=== PATIENT | female | born 1965 | race Caucasian/White ===

== ENCOUNTER 2020-12-11 13:54 | Emergency (ER) | payer MEDICARE, OTHER, SELFPAY ==
[2020-12-11 14:12] VITALS: BP 170/106; PULSE 97; RESP 20; TEMP 36.7; O2SAT 97
--- NOTE | 2020-12-11 14:23 | ED.FEMALEGU ---
HPI - Female Genitourinary General Chief complaint: Urogenital-Female <Sharee Carreon NP - Last Filed: 12/13/20 13:04> Stated complaint: Poss UTI <Sharee Carreon NP - Last Filed: 12/13/20 13:04> Time Seen by Provider: 12/11/20 14:24 <Sharee Carreon NP - Last Filed: 12/13/20 13:04> Source: patient, RN notes reviewed and old records reviewed <Sharee Carreon NP - Last Filed: 12/13/20 13:04> Mode of arrival: ambulatory <Sharee Carreon NP - Last Filed: 12/13/20 13:04> Limitations: no limitations <Sharee Carreon NP - Last Filed: 12/13/20 13:04> History of Present Illness HPI Narrative: 55-year-old female who presents to [facility] with complaints of urinary burning with pain in her left flank, lower back and suprapubic area of abdomen for the past 3 days. Patient reports that she has been taking Uricalm OTC for her symptoms and drinking lots of water. Patient states that she has had past history of Uro-sepsis in 2019 from UTI.Patient denies any known fevers, chills or sweats, no nausea or vomiting or any diarrhea.Patient reports no concern for STD exposure, denies any vaginal discharge or itching. <Sharee Carreon NP - Last Filed: 12/13/20 13:04> Related Data Home medications: Home Medications Medication Instructions Recorded Confirmed atorvastatin 80 mg PO DAILY 12/11/20 12/11/20 clopidogrel 75 mg PO DAILY 12/11/20 12/11/20 furosemide 20 mg PO QAM 12/11/20 12/11/20 glipizide 10 mg PO DAILY 12/11/20 12/11/20 isosorbide mononitrate 30 mg PO DAILY 12/11/20 12/11/20 lisinopril 20 mg PO DAILY 12/11/20 12/11/20 nitroglycerin 0.4 mg TRANSDERMAL DAILY 12/11/20 12/11/20 omeprazole 40 mg PO DAILY 12/11/20 12/11/20 <Sharee Carreon NP - Last Filed: 12/13/20 13:04> Allergies/Adverse reactions: Allergies Allergy/AdvReac Type Severity Reaction Status Date / Time tramadol Allergy Vomiting Verified 12/11/20 14:13 <Sharee Carreon NP - Last Filed: 12/13/20 13:04> Review of Systems Review of Systems: CONSTITUTIONAL: Denies fever, chills, or sweats. EYES: Denies visual changes, redness, or discharge. ENT: Denies rhinorrhea, congestion, sore throat, or otalgia. CARDIOVASCULAR: Denies chest pain, palpitations, or edema. RESPIRATORY: Denies cough or dyspnea. GASTROINTESTINAL: Suprapubic pain in abdominal, no nausea, vomiting, or diarrhea. GENITOURINARY:Positive for dysuria or hematuria. SKIN: Denies rash or itching. MUSCULOSKELETAL:Positive for left flank area back pain, joint pain, or myalgia. NEUROLOGIC: Denies headache, numbness, or weakness. PSYCHIATRIC: Positive history of anxiety or depression. <Sharee Carreon NP - Last Filed: 12/13/20 13:04> All systems reviewed & are unremarkable except as noted in HPI and below <Sharee Carreon NP - Last Filed: 12/13/20 13:04> [facility] Past Medical History Medical History: Medical History (Updated 12/13/20 @ 12:59 by Sharee Carreon NP) Anxiety Diabetes Heart attack MRSA cellulitis UTI (urinary tract infection) <Sharee Carreon NP - Last Filed: 12/13/20 13:04> Surgical History Surgical History: Surgical History (Updated 12/11/20 @ 15:02 by Sharee Carreon NP) H/O heart artery stent X4 History of appendectomy History of right salpingo-oophorectomy <Sharee Carreon NP - Last Filed: 12/13/20 13:04> Family History Family History: Family History (Updated 12/11/20 @ 14:59 by Sharee Carreon NP) Grandparent Cerebrovascular accident Mother Diabetes mellitus Heart disease <Sharee Carreon NP - Last Filed: 12/13/20 13:04> Social History Social History: Social History (Updated 12/11/20 @ 14:58 by Sharee Carreon NP) Smoking packs per day: 0.5 Smoking cigarettes per day: 10.0 Years smoked: 40 Smoking pack-years: 20.00 Smoking status: Current every day smoker Tobacco type: cigarettes Alcohol intake: former Alcohol use details:
[2020-12-11 14:40] LABS: Glucose Point of Care 347 mg/dl (65-105)
[2020-12-11 14:45] VITALS: BP 156/96
== END 2020-12-11 14:53 | disposition home or self-care (01) ==
PROVIDERS: Emergency Provider Registered Nurse
DX: N39.0 Urinary tract infection, site not specified (principal); F17.210 Nicotine dependence, cigarettes, uncomplicated; E11.9 Type 2 diabetes mellitus without complications; I25.2 Old myocardial infarction; Z86.14 Personal history of Methicillin resistant Staphylococcus aureus infection
CPT/HCPCS: 81003; 82948; 87077; 87086; 87088; 87186; 99203; G0463

== ENCOUNTER 2022-04-25 15:52 | Emergency (ER) | payer OTHER, SELFPAY ==
[2022-04-25 16:01] VITALS: BP 132/82; PULSE 80; RESP 18; TEMP 36.3; O2SAT 97
--- NOTE | 2022-04-25 16:06 | ED.URI ---
HPI - URI/Sore Throat General Chief Complaint: Urogenital-Female Stated Complaint: Poss UTI/hemorroids Time Seen by Provider: 04/25/22 16:06 Source: patient Mode of arrival: ambulatory Limitations: no limitations History of Present Illness HPI Narrative: Michelle is a 57-year-old female patient presenting to the clinic today with complaints of possible urinary tract infection/hemorrhoids. She reports she is having vaginal itching, burning, and mild discharge. She also is concerned about her hemorrhoids as a feel inflamed. She is also concerned that she may have urinary tract infection. Related Data Home Medications Medication Instructions Recorded Confirmed atorvastatin 80 mg tablet 80 mg PO DAILY 12/11/20 04/25/22 clopidogrel 75 mg tablet 75 mg PO DAILY 12/11/20 04/25/22 furosemide 20 mg tablet 20 mg PO QAM 12/11/20 04/25/22 glipizide 10 mg tablet, extended 10 mg PO DAILY 12/11/20 04/25/22 release 24 hr isosorbide mononitrate 30 mg 30 mg PO DAILY 12/11/20 04/25/22 tablet,extended release 24 hr lisinopril 20 mg tablet 20 mg PO DAILY 12/11/20 04/25/22 nitroglycerin 0.4 mg/hr 0.4 mg transdermal DAILY 12/11/20 04/25/22 transdermal 24 hour patch omeprazole 40 mg capsule,delayed 40 mg PO DAILY 12/11/20 04/25/22 release Allergies Allergy/AdvReac Type Severity Reaction Status Date / Time tramadol AdvReac Vomiting Verified 04/25/22 16:09 Review of Systems Review of Systems: Pertinent positives per HPI. Patient denies any fever, chills, rash, headache, visual changes, dizziness, cough, runny nose, sore throat, shortness of breath, chest pain, palpitations, nausea, vomiting, diarrhea, constipation, abdominal pain. [facility] Past Medical History Medical History Anxiety Diabetes Heart attack MRSA cellulitis UTI (urinary tract infection) Surgical History Surgical History H/O heart artery stent X4 History of appendectomy History of right salpingo-oophorectomy Family History Family History Grandparent Cerebrovascular accident Mother Diabetes mellitus Heart disease Social History Social History (Updated 12/11/20 @ 14:58 by Sharee Carreon NP) Smoking packs per day: 0.5 Smoking cigarettes per day: 10.0 Years smoked: 40 Smoking pack-years: 20.00 Smoking status: Current every day smoker Tobacco type: cigarettes Alcohol intake: former Alcohol use details: social Substance use: current Substance use type: marijuana Living arrangements: alone Gender identity (if verbalized by the patient): Female Comments At the time of my signature, I reviewed and agree with the nursing past medical, surgical, social, and family history. There is no relevant family history pertinent to the patient complaint. Exam Narrative: General: Well-developed, well nourished, in no apparent distress Head: Normocephalic, atraumatic. Cardio: Regular rate and rhythm, s1 and s2 normal, no murmur appreciated. Resp: Clear to auscultation bilaterally, no rhonchi, rales, wheezing or rubs. Abdomen: Soft, pliable, bowel sounds present in all quadrants, non-tender to palpation, no CVAT tenderness. : Pelvic exam performed with (Yeesnia HATFIELD) at bedside. Verbal consent obtained from patient. Normal external female genitalia without lesions or masses, beefy red rash to perineum and to the external vagina Urinary meatus: patent without discharge, Vagina: No external lesions, masses, thin white discharge, Rectum: Large external non thrombosed rectal hemorrhoid Course Course Emergency Course: Portions of this record may have been created with voice recognition software. Level of Care: Express Care Visit Vital Signs Vital signs: Vital Signs Temperature 36.3 C L 04/25/22 16:01 Pulse Rate 80 04/25/22 16:01 Respirato
== END 2022-04-25 16:47 | disposition home or self-care (01) ==
PROVIDERS: Emergency Provider Nurse Practitioner Family; PCP Internal Medicine
DX: K64.9 Unspecified hemorrhoids (principal); B37.31 Acute candidiasis of vulva and vagina; R81 Glycosuria; E11.9 Type 2 diabetes mellitus without complications; I25.2 Old myocardial infarction; F17.210 Nicotine dependence, cigarettes, uncomplicated
CPT/HCPCS: 81003; 99213; G0463

== ENCOUNTER 2024-03-14 15:00 | Emergency (ER) | payer OTHER, SELFPAY ==
[2024-03-14 15:09] VITALS: BP 143/84; PULSE 85; RESP 20; TEMP 36.6; O2SAT 98
--- NOTE | 2024-03-14 16:00 | ED_ITS ---
HPI - URI/Sore Throat General Chief Complaint: Upper Respiratory Infection Stated Complaint: upper respiratory Time Seen by Provider: 03/14/24 15:40 Source: patient, RN notes reviewed and old records reviewed Mode of arrival: ambulatory Limitations: no limitations History of Present Illness HPI Narrative: 59 year old female presents to [facility] care with complaints of cough, sinus congestion with some sore throat with headaches since [place]. Patient reports that she has not had any known fevers but has had some chills. Patient states that her throat is scratchy and cough is worse at night, Patient is daily cigarette smoker. Patient reports that she has tried Delsym, Sudafed and Ibuprofen for her symptoms without improvement. Patient reports that she did have one incidence of bloody drainage from nose. Patient reports that cough is productive of white and yellow tinged phlegm. MD elicited complaint: cough, sore throat, rhinorrhea, nasal congestion and other (headache) Pertinent past history: COPD and other (CAD, tobacco use) Onset (ago): day(s) (5) Consistency: constant Severity: moderate Able to tolerate fluids by mouth: Yes Treatments prior to arrival: ibuprofen and other (Delsym and Sudafed) Related Data Home Medications ?Medication ?Instructions ?Recorded ?Confirmed ?Last Taken ?Type atorvastatin 80 mg tablet 80 mg PO DAILY 12/11/20 04/25/22 Unknown History clopidogrel 75 mg tablet 75 mg PO DAILY 12/11/20 04/25/22 Unknown History furosemide 20 mg tablet 20 mg PO QAM 12/11/20 04/25/22 Unknown History glipizide 10 mg tablet, extended 10 mg PO DAILY 12/11/20 04/25/22 Unknown History release 24 hr isosorbide mononitrate 30 mg 30 mg PO DAILY 12/11/20 04/25/22 Unknown History tablet,extended release 24 hr lisinopril 20 mg tablet 20 mg PO DAILY 12/11/20 04/25/22 Unknown History omeprazole 40 mg capsule,delayed 40 mg PO DAILY 12/11/20 04/25/22 Unknown History release carvedilol 6.25 mg tablet mg 03/14/24 Unknown History empagliflozin 25 mg tablet mg 03/14/24 Unknown History (Jardiance) ezetimibe 10 mg tablet mg 03/14/24 Unknown History insulin degludec 100 unit/mL (3 unit subcut 03/14/24 Unknown History mL) subcutaneous pen (Tresiba FlexTouch U-100 insulin) insulin lispro 100 unit/mL subcut 03/14/24 Unknown History subcutaneous pen (Admelog SoloStar U-100 Insulin lispro) tirzepatide 2.5 mg/0.5 mL mg subcut 03/14/24 Unknown History subcutaneous pen injector (Mounjaro) Allergies Allergy/AdvReac Type Severity Reaction Status Date / Time tramadol AdvReac Vomiting Verified 03/14/24 15:11 Review of Systems Review of Systems: CONSTITUTIONAL: Reports malaise, chills, sweats, no known fevers EYES: Denies visual changes, redness, or discharge. ENT: Reports rhinorrhea, congestion, sinus pain, no otalgia and scratchy sore throat. CARDIOVASCULAR: Denies chest pain, palpitations, or edema. RESPIRATORY: Reports productive cough.? Denies dyspnea. GASTROINTESTINAL: Denies abdominal pain, nausea, vomiting, diarrhea SKIN: Denies rash or itching. MUSCULOSKELETAL: Denies myalgia. NEUROLOGIC: Reports headache. All systems reviewed & are unremarkable except as noted in HPI and below PMFSH Past Medical History Medical History Elevated cholesterol GERD (gastroesophageal reflux disease) Hypertension CAD (coronary artery disease) Anxiety MRSA cellulitis UTI (urinary tract infection) Heart attack Diabetes Surgical History Surgical History H/O heart artery stent X7 History of appendectomy History of right salpingo-oophorectomy Family History Family History Grandparent Cerebrovascular accident Mother Diabetes mellitus Heart disease Social History Social History Smoking packs per day: 0.5 Smoking cigarettes per day: 10.0 Years smoked: 40 Smoking pack-years: 20.00 Smoking status: Current every day smoker Tobacco type: cigarettes Alcohol intake: former Alcohol use details: social Substance use: current Substance use type: marijuana Living arrangements: alone Gender identity (if verbalized by the patient): Female Comments At time of signature, agree with nursing past medical, surgical, social and family history. There is no relevant family history pertinent to the presenting complaint Exam Narrative: GENERAL:chronic ill-appearing, well-nourished, and in no acute distress. HEAD: Normocephalic EYES: PERRLA conjunctivae clear ENT: Nares clear, turbinates edematous and erythematous, clear discharge, sinus pressure and headache. Mucous membranes moist. TM pearly veloz with dull light reflex bilaterally; no tragal tenderness. Oropharynx erythematous without lesions. Tonsils not enlarged and without exudate, no drooling, no hoarseness, no trismus, uvula midline.post nasal drainage NECK: Supple. No lymphadenopathy CHEST: Scattered wheezing on auscultation, breath sounds equal.+wheezing, no rhonchi, rales, or stridor. No respiratory distress, speaks in full sentences.productive cough SAO2 98% on room air HEART: Regular rate and rhythm. No murmur heard. SKIN: Warm, dry, no rash. NEURO: Alert and oriented x3. PSYCH: Normal mood and affect Course Course Emergency Course: Patient is aware of diagnosis, understands and agrees to treatment plan.? Anticipatory guidance given.? Patient agrees to follow-up as directed and is aware of reasons to seek care at the emergency department. Portions of this record may have been created with voice recognition software Level of Care: Express Care Visit Vital Signs Vital signs: Vital Signs Temperature 36.6 C 03/14/24 15:09 Pulse Rate 85 03/14/24 15:09 Respiratory Rate 20 03/14/24 15:09 Blood Pressure 143/84 H 03/14/24 15:09 Pulse Oximetry 98 03/14/24 15:09 Oxygen Delivery Room Air 03/14/24 15:09 Temperature 36.6 C 03/14/24 15:09 Pulse Rate 85 03/14/24 15:09 Respiratory Rate 20 03/14/24 15:09 Blood Pressure 143/84 H 03/14/24 15:09 Pulse Oximetry 98 03/14/24 15:09 Oxygen Delivery Room Air 03/14/24 15:09 Reviewed MDM - URI/Sore Throat MDM Narrative Medical decision making narrative: Differential diagnosis considered: [place] virus, strep pharyngitis, allergic rhinitis, upper respiratory tract infection, sinusitis, rhinosinusitis, nasopharyngitis. viral pharyngitis, otitis media, otitis externa, pneumonia, bronchitis, viral cough syndrome, viral syndrome, and influenza.? Exam findings show no acute concerns or changes; patient is non-toxic appearing and is in no distress.? Patient is appropriate for outpatient treatment and follow-up. Differential Diagnosis Differential diagnosis: Likely upper respiratory infection, sinusitis, viral infection, bronchitis and other (acute cough) Medical Records Attestation: I reviewed the patient's medical records. Lab Data Attestation: I reviewed the patient's lab results. Critical Care Time Critical Care Time Critical Care Time: No Discharge Plan Discharge Clinical Impression: Acute bronchitis Qualifiers: Bronchitis organism: unspecified organism Qualified Code(s): J20.9 - Acute bronchitis, unspecified Patient Disposition: Home, Self-Care Condition: Stable Instructions: Antibiotic Form Additional Instructions: Increase fluids especially juices and water [id number] cough and cold medicine of your choice for your symptoms Tylenol or ibuprofen for any fever pain Zyrtec Claritin or Sarahi daily Continue your inhaler/nebulizer as directed Steroids as directed--take with food heat to the face 20-30 minutes 4-6 times a day for pain Salt water gargles, throat lozenges or throat sprays as desired Antibiotic as directed--finished the medication If your symptoms persist, change or worsen significantly before you can contact your personal physician then please, without delay, go to the emergency department for further evaluation. Follow-up with PCP in 7-10 days or sooner if needed Follow up with PCP soon in regards to your blood pressure which is elevated above threshold for referral. Blood pressure above 120/80 may indicate pre-hypertension. Patient Language: Filipino Prescriptions: New azithromycin 500 mg tablet 500 mg PO DAILY 5 Days Qty: 5 0RF prednisone 20 mg tablet 40 mg PO DAILY 5 Days Qty: 10 0RF Rx Instructions: take in am albuterol sulfate 90 mcg/actuation HFA aerosol inhaler 2 puff inhalation QID PRN (Reason: shortness of breath or wheezing) Qty: 6.7 0RF No Action carvedilol 6.25 mg tablet insulin lispro [Admelog SoloStar U-100 Insulin] 100 unit/mL insulin pen SUBCUT ezetimibe 10 mg tablet insulin degludec [Tresiba FlexTouch U-100] 100 unit/mL (3 mL) insulin pen SUBCUT Jardiance 25 mg tablet Mounjaro 2.5 mg/0.5 mL pen injector SUBCUT glipizide 10 mg tablet extended release 24hr 10 mg PO DAILY isosorbide mononitrate 30 mg tablet extended release 24 hr 30 mg PO DAILY clopidogrel 75 mg tablet 75 mg PO DAILY omeprazole 40 mg capsule,delayed release(DR/EC) 40 mg PO DAILY furosemide 20 mg tablet 20 mg PO QAM atorvastatin 80 mg tablet 80 mg PO DAILY lisinopril 20 mg tablet 20 mg PO DAILY Follow-up/Referrals: Davi,Lyndon Carlos MD [Primary Care Provider] - Time of Disposition: 16:04 Quality [place] Coma Scale Eyes: Open Verbal: Oriented and Alert Motor: Follows Commands [place] Coma Total Score: 15
== END 2024-03-14 16:17 | disposition home or self-care (01) ==
PROVIDERS: Emergency Provider Registered Nurse; PCP Internal Medicine Infectious Disease
DX: J20.9 Acute bronchitis, unspecified (principal); F17.210 Nicotine dependence, cigarettes, uncomplicated; F12.90 Cannabis use, unspecified, uncomplicated; I25.10 Atherosclerotic heart disease of native coronary artery without angina pectoris; I10 Essential (primary) hypertension; E11.9 Type 2 diabetes mellitus without complications; Z79.84 Long term (current) use of oral hypoglycemic drugs; E78.00 Pure hypercholesterolemia, unspecified; K21.9 Gastro-esophageal reflux disease without esophagitis; I25.2 Old myocardial infarction; Z86.14 Personal history of Methicillin resistant Staphylococcus aureus infection; Z95.5 Presence of coronary angioplasty implant and graft
CPT/HCPCS: 99213; G0463

== ENCOUNTER 2025-02-10 14:10 | Emergency (ER) | payer OTHER, SELFPAY ==
--- NOTE | ~2025-02-10 | XR_ITS ---
EXAMINATION: XR chest 2V, 02/10/2025 14:30 CELL MAKER HISTORY: COUGH, CONGESTION COMPARISON: No comparisons available. Technique: 2 views obtained. Findings: The lungs are clear, no effusion. No pneumothorax. Heart is normal size. Mediastinal and hilar contours are within normal limits. Bony thorax no acute abnormality. Impression: No acute cardiopulmonary abnormality. Reviewed, dictated and finalized at location P. MAKER Impression: No acute cardiopulmonary abnormality.
--- OUTSIDE RECORDS SUMMARY | 2025-02-10 14:12 | XMS_ITS | Clinical Summary ---
Author Organization [facility] Address [address] [place] [address] Care Team Providers Care Accreditation Coordinator Name Role Phone Zee Bourne APRN-WIND OPERATIONS MANAGER Primary Care Provider [phone]- [phone] Source Comments [facility],non-owned Affiliates and Associated Physician Practices is amultiple site organization consisting of ambulatory clinics and hospital sitesin [place], [place], [place] and [place]. This disclosure is being madepursuant to the Care Everywhere program and may not contain all information available regarding this patient. Last updated 17.[facility] Allergies Active Allergy Reactions Criticality Noted Date Comments Tramadol GI Discomfort 06/25/2017 Medications * This document contains information received from the source organization and may not represent a complete record from that organization. * Be aware that medications may not be up to date on this document. Alwaysverify current medications with the patient. aspirin (ASPIRIN) 81 MG chew tabletIndicatio ns:Acute Myocardial Infarction Take 81 mg by mouth once daily. Indications: Heart Attack Active ibuprofen (MOTRIN) 200 MG tabletIndicatio ns:Mild to Moderate Pain Take 200 mg by mouth every 6 hours as needed for Pain. Indications: Mild to Moderate Pain Active acetaminophen (TYLENOL) 500 MG tablet Take 500 mg by mouth every 4 hours as needed for Fever or Pain Maximum allowable Acetaminophen amount = 4 Grams (4000 mg) / 24 hours. Active diphenhydrAMINE (BENADRYL CHILDRENS ALLERGY) 12.5 MG/5ML liquid Active ONE TOUCH ULTRASOFT LANCETS MISC Use 1 Each 4 times daily Test blood sugar 4 times daily 160 Each 11 9 Active ONETOUCH ULTRA TEST STRIPS test strip Use 1 strip 4 times daily Test blood sugar 4 times daily 160 strip 9 Active glipiZIDE CR 24hr (GLUCOTROL XL) 10 MG tabletIndicatio ns:Diabetes mellitus type 2, noninsulin dependent (HCC) Take 1 (one) tablet by mouth once daily 30 tablet 11 1 Active omeprazole (PRILOSEC) 40 MG capsule Take 1 (one) capsule by mouth once daily 90 capsule 1 1 Active carvedilol (COREG) 6.25 MG tabletIndicatio ns:Presence of drug-eluting stent in left circumflex coronary artery,Essentia l hypertension,St atus post insertion of drug-eluting stent into right coronary artery for coronary artery disease Take 1 (one) tablet by mouth 2 times daily with morning and evening meal 180 tablet 2 1 Active lisinopril (PRINIVIL; ZESTRIL) 20 MG tabletIndicatio ns:Presence of drug-eluting stent in left circumflex coronary artery,Essentia l hypertension,St atus post insertion of drug-eluting stent into right coronary artery for coronary artery disease Take 1 (one) tablet by mouth once daily 90 tablet 2 1 Active nicotine polacrilex (NICORETTE) 4 MG gumIndications: Nicotine Dependence Take 1 (one) Each by mouth as needed for Smoking Cessation Reasons: Nicotine Addiction 40 Each 2 1 Active isosorbide mononitrate CR 24hr (IMDUR) 30 MG tablet TAKE 1 TABLET BY MOUTH EVERY DAY 90 tablet 3 2 Active atorvastatin (LIPITOR) 80 MG tablet TAKE 1 TABLET BY MOUTH AT BEDTIME 90 tablet 2 Active nitroGLYCERIN (NITRODUR) 0.4 MG/HR patch APPLY 1 PATCH TOPICALLY TO THE SKIN EVERY MORNING 30 patch 5 2 Active furosemide (LASIX) 20 MG tablet TAKE 1 TABLET BY MOUTH EVERY MORNING 90 tablet 2 2 Active Active Problems Problem Noted Date Diagnosed Date Pain and swelling of right lower extremity 07/06 Chronic stable angina 11/01/2018 Presence of drug-eluting paty nt in left circumflex coronary artery 09/18/2018 Status post insertion of sudhakar g-eluting stent into right coronary artery for coronary artery disease 09/18/2018 Assessment & Plan (02/11/2021 1:49 PM MANAGER OUTREACH): Continue asa daily Stop smoking! Patient stopped taking Plavix 1-2 months ago. Last stents 2015-okay to stop Continue atorvastatin nightly CKD stage 3 secondary to diabetes 08/27/2018 [place] (dyspnea on exertion) 10/31/2017 Current smoker 10/31/2017 Assessment & Plan (02/11/2021 1:24 PM MANAGER OUTREACH): Continues to smoke 0.5 pack daily Would like to try the gum rx sent to pharmacy for 4 mg nicorette gum Discussed at length how to use Bipolar affective disorder, current episode hypo manic 10/13/2017 PTSD (post-traumatic stress disorder) 10/13/2017 Overview (10/13/2017): Currently active Papanicolaou smear of cervix with positive high risk human papilloma virus (HPV) test 02/24/2017 Overview (08/11/2017): Overview: Needs repeat pap and hpv testing 02/2018. COPD (chronic obstructive pulmonary disease) 12/2016 Congestive heart failure 09/22/2016 Anxiety and depression 09/22/2016 Essential hypertension 09/22/2016 Assessment & Plan (02/11/2021 1:55 PM MANAGER OUTREACH): Continue lisinopril 20 mg tablet PO daily, restart carvedilol 6.25 mg BID (pulse today 103, consider increasing this at follow up). Continue imdur and nitro patch as patient has been on this and stable. Reinforced s/s of hypotension. She voiced understanding. Discussed her home nitro tablets for PRN use which she says she does not need and has not used. We discussed if she does use to be sure she monitors for hypotension. All questions answered. GERD (gastroesophageal reflux disease) 7 Hyperlipidemia 09/22/2016 Myocardial infarction 09/22/2016 Overview (08/11/2017): Overview: History of 5 MIs, last was 10/2015. She has 4 stents. Osteoarthritis of multiple joints 09/22/2016 Seasonal allergies 09/22/2016 Type 2 diabetes mellitus 09/22/2016 ST elevation TN (STEMI) 07/19/2014 Immunizations Immunization Administration Dates Next Due PNEUMOCOCCAL PPSV23 02/13/2015 iNFLUENZA VACCINE, RECOM-CEBALLOS, QUADR. (FLUBLOCK QUADRIVALENT; 18Y+) (RIV4) 12/28/2018 Social History Tobacco Use Types Packs/Day Years Used Date Smoking Tobacco: Every Day Cigarettes 0.5 31 Smokeless Tobacco: Never Tobacco Cessation:Ready to Q uit: No; Counseling Given: Yes Comments:half a pack a day Alcohol Use Standard Drinks/Week Comments No 0 (1 standard drink = 0.6 oz pur e alcohol) Comments No Sex and Gender Information Value Date Recorded Sex Assigned at Not on file Legal Sex Female 9:02 PM CDT Gender Identity Not on file Sexual Orientation Not on file Last Filed Vital Signs Vital Sign Reading Time Taken Comments Blood Pressure 140/94 02/11/2021 12:51 PM MANAGER OUTREACH Pulse 103 02/11/2021 12:51 PM MANAGER OUTREACH Temperature 36.4 C (97.6 F) 04/12/2019 11:01 AM MANAGER OUTREACH Respiratory Rate 20 07/20/2014 12:57 PM CDT Oxygen Saturation 95% 02/11/2021 12:51 PM MANAGER OUTREACH Inhaled Oxygen Concentration 21% 07/20/2014 1 2:57 PM CDT Weight 90.3 kg (199 lb) 02/11/2021 12:51 PM MANAGER OUTREACH Height 161.3 cm (5' 3.5) 02/11/2021 12:51 PM CS T Body Mass Index 34.7 02/11/2021 12:51 PM MANAGER OUTREACH Plan of Treatment Health Maintenance Due Date Last Done Comments COLOGUARD (AGES 45-75) - COLON CA SCREENING 1964 COLON MONITORING 1964 COLONOSCOPY - COLON CA SCREENING 1964 CT COLONOGRAPHY - COLON CA SCREENING 1964 Colorectal Cancer Screening 1964 FIT - COLON CA SCREENING 1964 FLEX SIG - COLON CA SCREENING 1964 MEDICARE AWV 12 MONTHS 1964 HIV SCREENING 1979 HEPATITIS C SCREENING 02/28/1982 DTAP/TDAP/TD VACCINES (1 - Tdap) 1983 Respiratory Syncytial Virus (RSV) Vaccine Pt: or over 60 yrs (1 - Risk 50-74 years 1-dose series) 2014 ZOSTER VACCINE (1 of 2) 2014 PNEUMOCOCCAL VACCINE 50+ (2 of 2 - PCV) 02/14/2016 02/13/2015 MAMMOGRAM 10/17/2018 10/17/2016 DIABETES-FOOT EXAM WITH MONOFILAMENT 10/20/2018 10/20/2017, 10/20/2017 DIABETES-SERUM CREATININE 08/24/20192018, 09/22/2016, 07/20/2014, Additional history exists DIABETES-HGB A1C 10/11/2019 04/12/2019, 12/2018, 10/20/2017, Additional history exists DIABETES RETINOPATHY SCREENING 08/29/2022 08/29/2020, 08/29/2020, 09/13/2018, Additional history exists PAP with HPV 11/02/2023 11/01/2018, 08/25/2018 DIABETES - URINE PROTEIN SCREENING 03/16/2024 08/23/2018, 09/22/2016 COVID-19 VACCINE ( season) 2024 INFLUENZA VACCINE (#1) 2024 12/28/2018 HEPATITIS B VACCINE Aged Out No longe r eligible based on patient's age to complete this topic HIB VACCINE Aged Out No longer eligi ble based on patient's age to complete this topic HPV VACCINE Aged Out No longer eligi ble based on patient's age to complete this topic MENINGOCOCCAL (Group B) VACCINE SHARED DECISION-MAKING Aged Out No longer eligible based on patient's age to complete this topic MENINGOCOCCAL GROUPS A/C/Y/W VACCINE Aged Out No longer eligible based on patient's age to complete this topic Procedures Procedure Name Priority Date/Time Associated Diagnosis Comments HEMOGLOBIN A1C - POINT OF CARE (AMB) SLU Routine 04/12/2019 Diabetes mellitus type 2, noninsulin dependent HPV DETECTION HIGH RISK LUCAS Routine 11/01/2018 2:45 PM CDT Screening for cervical cancer MICROALB/CREAT RATIO URINE RANDOM PANEL Routine 08/23/2018 4:02 PM CDT Diabetes mellitus type 2, noninsulin dependent COMPREHENSIVE METABOLIC PANEL Routine 08/23/2018 3:58 PM CDT Diabetes mellitus type 2, noninsulin dependent MAMMO BILAT SCREENING Routine 10/17/2016 3:00 PM CDT from Last 3 Months or Most Recently Relevant to Health Maintenance Results * HEMOGLOBIN A1C - POINT OF CARE (AMB) U (04/12/2019) Pathologist [facility] Hemoglobin A1c POCT 7.7 BLOOD SPECIMEN / Unknown 04/12/2019 Femi Valdes PA-C LAB - POINT OF CARE ORDERABLES Final Result * HPV DETECTION HIGH RISK LUCAS (11/01/2018 2:45 PM CDT) Pathologist [facility] High Risk Human Papilloma Result Not Detected Not Detected 11/09/2018 11:35 AM CDT [facility] High Risk Human Papilloma Interp 11/09/2018 11:35 AM CDT [facility] Comment:High Risk Human Kareem lloma Virus was Not Detected. Pathology/Cytolo gy MISCELLANEOUS SAMPLES / Unknown Collection / Unknown 11/01/2018 2:45 PM CDT 11/04/2018 1:44 PM CDT Narrative [facility] - 11/09/2018 11:35 AM CDT Nucleic acid isolated from the specimen was analyzed with a nucleic acid amplification test (FDA approved Gen-Probe HPV Assay) to detect high risk human papilloma virus (Types: 16, 18, 31, 33, 35, 39, 45, 51, 52, 56, 58, 59, 66, and 68). The reference range is Not Detected. Comment: These test results should not be used as the sole basis for clinical assessment and treatment of patients. These results should always be correlated with other available data (cytology, histology, and clinical information). Femi Valdes PA-C LAB - MICROBIOLOGY ORDERABLES Final Result Performing Organization Address [facility]/ZIP Co de Phone Number [facility] [address] [phone] * MICROALB/CREAT RATIO URINE RANDOM PANEL (08/23/2018 4:02 PM CDT) Albumin Random Urine <5.0 Not Established mcg/mL 08/23/2018 5:52 PM CDT [facility] Creatinine Urine 34 Not Established mg/dL 08/23/2018 5:52 PM CDT [facility] Urine Albumin/Creati nine Ratio <15 <30 mg/g 08/23/2018 5:52 PM CDT [facility] Albumin/Creati nine Ratio Urine See Comment <30 mg/g 08/23/2018 5:52 PM T [facility] Comment: Unable to calculate the Urine Albumin/Creatinine Ratio due to one or more analyte concentration(s) being outside the measuring limits of the instrument. Urine URINE SPECIMEN OBTAINED BY CLEAN CATCH PROCEDURE / Unknown Collection / Unknown 08/23/2018 4:02 PM CDT 08/23/2018 4:34 PM CDT Femi Valdes PA-C LAB - URINE CHEMISTRY ORDERABL ES Final Result Performing Organization Address [facility]/ZIP Co de Phone Number [facility] [address] [place] [address] * (ABNORMAL) COMPREHENSIVE METABOLIC PANEL (08/23/2018 3:58 PM CDT) BUN 17 7 - 26 mg/dL 08/23/2018 5:37 PM CDT [facility] Creatinine 1.0 0.6 - 1.2 mg/dL 08/23/2018 5:37 PM CDT [facility] Sodium 140 136 - 145 mmol/L 08/23/2018 5:37 PM CDT [facility] Potassium 4.4 3.5 - 4.5 mmol/L 08/23/2018 5:37 PM CDT [facility] Chloride 104 98 - 107 mmol/L 08/23/2018 5:37 PM [facility] CO2 26 22 - 29 mmol/L 08/23/2018 5:37 PM [facility] Glucose 129(H) 70 - 115 mg/dL 08/23/2018 5:37 PM [facility] Calcium 9.1 8.4 - 10.2 mg/dL 08/23/2018 5:37 PM [facility] Protein Total 7.0 6.0 - 8.3 g/dL 08/23/2018 5:37 PM [facility] Albumin 3.8 3.4 - 5.0 g/dL 08/23/2018 5:37 PM [facility] Bilirubin Total 0.4 0.2 - 1.2 mg/dL 08/23/2018 5:37 PM [facility] Alkaline Phosphatase 108 40 - 150 Units/L 08/23/2018 5:37 PM [facility] ALT 42 0 - 55 Units/L 08/23/2018 5:37 PM [facility] AST 26 5 - 34 Units/L 08/23/2018 5:37 PM [facility] Anion Gap 14 8 - 18 08/23/2018 5:37 PM [facility] BUN/Creatinine Ratio 17 7 - 23 08/23/2018 5:37 PM [facility] Osmolality Calculated 293 270 - 300 mOsm/kg 08/23/2018 5:37 PM [facility] Albumin/Globulin Ratio 1.2 1.1 - 2.3 08/23/2018 5:37 PM [facility] eGFR 58(L) >60 mL/min/1.7 3 m2 08/23/2018 5:37 PM [facility] Blood BLOOD SPECIMEN / Unknown Lab Venipuncture / Unknown 08/23/2018 3:58 PM CDT 08/23/2018 4:34 PM CDT Femi Valdes PA-C LAB - CHEMISTRY ORDERABLES Fin al Result [address] [phone] * MAMMO BILAT SCREENING (10/17/2016 3:00 PM CDT) Anatomical Region Laterality Modality Breast Bilateral Other Impressions 10/20/2016 8:59 AM CDT IMPRESSION: No mammographic evidence of malignancy. ASSESSMENT: BI-RADS Category 1: Negative mammogram. RECOMMENDATION: Return for mammograms in one year or sooner if clinically indicated. This report was electronically signed by EPHRAIM HERNANDEZ M.D. on 10/20/2016 8:59 AM . Narrative 10/20/2016 8:59 AM CDT Bilateral screening mammogram Date: 10/17/2016 3:00 PM Comparison: No comparisons are available. The patient states this is her baseline mammogram.. History: Screening mammogram. RISK ASSESSMENT CALCULATION: Based on the information provided by the patient, her lifetime risk of breast cancer is average (<15%). Technique: The breasts were imaged in multiple views using 3D tomosynthesis with reconstructed/synthetic images and CAD analysis. Findings: No suspicious mass, grouped microcalcification or architectural distortion is seen. Breast parenchymal density: The breasts are almost entirely fatty. This examination was subjected to CAD analysis. Procedure Note Prerna Hernandez MD - 06/12/2017 Bilateral screening mammogram Date: 10/17/2016 3:00 PM Comparison: No comparisons are available. The patient states this is herbaseline mammogram.. History: Screening mammogram. RISK ASSESSMENT CALCULATION: Based on the information provided by thepatient, her lifetime risk of breast cancer is average (<15%). Technique: The breasts were imaged in multiple views using 3Dtomosynthesis with reconstructed/synthetic images and CAD analysis. Findings: No suspicious mass, grouped microcalcification or architectural distortionis seen. Breast parenchymal density: The breasts are almost entirely fatty. This examination was subjected to CAD analysis. IMPRESSION IMPRESSION: No mammographic evidence of malignancy. ASSESSMENT: BI-RADS Category 1: Negative mammogram. RECOMMENDATION: Return for mammograms in one year or sooner if clinicallyindicated. This report was electronically signed by EPHRAIM HERNANDEZ M.D. on10/20/2016 8:59 AM . Femi Valdes PA-C MAMMO ORDERABLES Final Result from Last 3 Months or Most Recently Relevant to Health Maintenance Insurance MEDICAID - [place] MEDICARE Advance Directives * Full Code (Latest Code Status on File) Date Activated Date Inactivated Comments 07/19/2014 11:10 AM 07/20/2014 4:00 PM Care Teams Accreditation Coordinator Relationship Specialty Start Date End Date Zee Bourne APRN-HAZEL [address] [place] [address] PCP - General 01/10/21
--- OUTSIDE RECORDS SUMMARY | 2025-02-10 14:12 | XMS_ITS | Encounter Summary ---
Author Organization [facility] Address [address] [place] [address] Care Team Providers Care Sap Abap Developer Name Role Phone Zee Bourne APRN-PNEUMATIC TUBE OPERATOR Primary Care Provider [phone]- [phone] Reason for Visit * Reason Onset Date Comments MEDICATION REFILL 04/10/2022 Encounter Details Date Type Department Care Team (Late st Contact Info) Description 04/10/2022 Refill [facility] [address] [address] [place] [address] Silva Adamson PA MEDICATION REFILL Social History Tobacco Use Types Packs/Day Years Used Date Smoking Tobacco: Every Day Cigarettes 0.5 31 Smokeless Tobacco: Never Comments:half a pack a day Alcohol Use Standard Drinks/Week Comments No 0 (1 standard drink = 0.6 oz pur e alcohol) Comments No Sex and Gender Information Value Date Recorded Sex Assigned at Not on file Legal Sex Female 9:02 PM CDT Gender Identity Not on file Sexual Orientation Not on file documented as of this encounter Functional Status * Is person deaf or have serious hearing difficulty? Answer Date of Assessment Author No 07/19/2014 2:15 PM CDT Lisa Blanc RN * Is person blind or have serious difficulty seeing? Answer Date of Assessment Author No 07/19/2014 2:15 PM Lisa Schwarz RN * Does person have serious difficulty walking/climbing stairs? Answer Date of Assessment Author No 07/19/2014 2:15 PM Lisa Schwarz RN * Does person have difficulty dressing/bathing? Answer Date of Assessment Author No 07/19/2014 2:15 PM Lisa Schwarz RN * Does person have difficulty doing errands alone? Answer Date of Assessment Author No 07/19/2014 2:15 PM Lisa Schwarz RN documented as of this encounter Mental Status * Does person have difficulty concentrating/remembering/making decisions? Answer Entry Date Author No 07/19/2014 2:15 PM Lisa Schwarz RN documented in this encounter Miscellaneous Notes * Telephone Encounter - Silva Adamson PA - 04/11/2022 9:01 AM CST Needs appointment please [employer] documented in this encounter Plan of Treatment Not on file documented as of this encounter Visit Diagnoses Not on filedocumented in this encounter Care Teams Sap Abap Developer Relationship Specialty Start Date End Date Zee Bourne APRN-HAZEL [address] [place] [id number] PCP - General 01/10/21 documented as of this encounter
--- OUTSIDE RECORDS SUMMARY | 2025-02-10 14:12 | XMS_ITS ---
Author Name ANDRES PLEITEZ Address [address] [place] [address] Phone [facility] Address [address] [place] [address] Phone Care Team Providers Care Buffing Machine Operator Semiautomatic Name Role Phone ERICKSON PLEITEZ ANDRES Unavailable [phone] ALLERGIES, ADVERSE REACTIONS AND ALERTS Allergy Name Allergy Date Allergy Status Allergy Severity Allergy Reaction Tramadol, [RxNorm: 55772] 12/01/2021 Current MEDICATIONS RxNorm Brand Name Prescription Ordered Value Order Unit Start Date Date Status Fill Status Indications 523304 amoxicil maria luz-pot clavulan ate 875-125 mg tablet SIG: amoxicillin-p ot clavulanate 875-125 mg oral tablet, 10 days, Dispense #20 Tablet, 0 Refills, Directions: Take 1 oral tablet 2 times a day. Take with food. Take until gone. 20 tablet 2021 Current 6137262 Lidocain e Viscous 2 % solution SIG: Lidocaine Viscous 2 % mucous membrane solution, 10 days, Dispense #100 Milliliter, 0 Refills, Directions: 5 mL by mouth every 3 hours as needed for dental pain. Swish and spit out. Do not swallow. 100 solution 2021 Current PROBLEMS Problem Code Problem Description Problem Status Problem Date Problem End Date J01.90-ACUTE SINUSITIS, UNSPECIFIED ACUTE SINUSITIS, UNSPECIFIED Chronic 11/30/2021 K02.9-DENTAL CARIES, UNSPECIFIED DENTAL CARIES, UNSPECIFIED Chronic 11/30/2021 K08.89-OTHER SPECIFIED DISORDERS OF TEETH AND SUPPORTING STRUCTURES OTHER SPECIFIED DISORDERS OF TEETH AND SUPPORTING STRUCTURES Chronic 11/30/2021 Z71.9-COUNSELING, UNSPECIFIED COUNSELING, UNSPECIFIED Chronic 11/30/2021 Z71.89-OTHER SPECIFIED COUNSELING OTHER SPECIFIED COUNSELING Chronic 11/30/2021 53426123-Iicazzb obstructive lung disease Chronic obstructive lung disease Current 12/01/2021 61028117-Bbiobop Anxiety Current 12/01/2021 49234173-Wjnqgoercs disorder Depressive disorder Current 12/01/2021 51274653-Iadsdcpj Migraine Current 12/01/2021 [id number]-Ydyipt Asthma Current 12/01/2021 [id number]-Ibbuclsbpfhl geal reflux disease Gastroesophageal reflux disease Current 12/01/2021 26580047-Ecbikukb arteriosclerosis Coronary arteriosclerosis Current 12/01/2021 19409372-Zdwidlovikesw rolemia Hypercholesterolemia Current 12/01/2021 4913829-Dpczhymmx Arthritis Current 12/01/2021 46633848-Jgjtxqwr of fallopian tube Ligation of fallopian tube Current 12/01/2021 10025837-Eofgzipzberb Appendectomy Current 12/01/2021 [id number]-Wxzpaqwoaluc Hysterectomy Current 12/01/2021 [id number]-Czwbszl coronary artery Stented coronary artery Current 12/01/2021 PROCEDURES Procedure Description Date Notes NO PROCEDURES PERFORMED ASSESSMENTS Assessment None PLAN OF TREATMENT Assessment Planned Activity LOINC Planned Serjio e None CONSULTATION NOTE Note Author Date None HISTORY AND PHYSICAL NOTE Note Author Date None PROGRESS NOTE Note Author Date None DISCHARGE SUMMARY Note Author Date None CHIEF COMPLAINT AND REASON FOR VISIT FUNCTIONAL STATUS Functional or Cognitive Find ing None MENTAL STATUS Cognitive Finding None ENCOUNTERS Encounter Type Provider Diagnoses Start Date Location Disc harged to None SOCIAL HISTORY Social Status Observation Smoking Status Not Recorded Sex: Female CARE TEAM INFORMATION Buffing Machine Operator Semiautomatic Provider ID Role Location Phone ANDRES PLEITEZ [phone] [address] [place] [phone] INSURANCE PROVIDERS Payer Name Policy type / Coverage type Covered libertarian ID Policy [place] Medicaid [id number] SELF MAGANA [facility] MEDICARE Medicare [id number] SELF
--- OUTSIDE RECORDS SUMMARY | 2025-02-10 14:14 | XMS_ITS | Clinical Summary ---
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 09/27/2020 2:04 PM BY ALDAIR SMALLS Overview: History of 5 MIs, last was 10/2015. She has 4 stents. Assessment & Plan (08/05/2024 5:38 AM CDT): Chronic, diagnosed 10 or more years ago, status post several interventions with some details lacking. Recommend continuing medical therapy including aspirin 81 mg daily, clopidogrel 75 mg daily, and other medications listed elsewhere. Assessment & Plan (08/05/2024 5:20 AM CDT): >>ASSESSMENT AND PLAN FOR CORONARY ARTERIOSCLEROSIS WRITTEN ON 05/17/2024 8:35 PM BY RON LEMUS NP Chronic, controlled on ASA, plavix, coreg, lisinopril, atorvastatin, zetia, and jardiance. Cardiac cath with stent insertion from 08/2021 reviewed. No acute symptoms or findings on exam. See plan for diabetes above with mounjaro adjustment. Assessment & Plan (01/25/2024 8:15 PM CIRCUS TRAIN SUPERVISOR): Chronic, controlled on current regimen. See plan for hypertension above. Assessment & Plan (08/09/2023 8:22 AM CDT): Chronic, controlled. She has a history of multiple stents placed. She is on a good medical regimen and currently denies having any problems with pain or pressure in her chest. Continue same and follow-up in six months. Assessment & Plan (08/04/2023 7:58 PM CDT): >>ASSESSMENT AND PLAN FOR NSTEMI (NON-ST ELEVATED MYOCARDIAL INFARCTION) (CMS/HCC) ([facility]) WRITTEN ON 07/23/2022 3:51 PM BY RON BARILLAS - Former episode, clinically stable - S/p multiple stenting - see CHF plan Osteoarthritis of multiple joints 09/22/2016 Overview (05/06/2023): Last Assessment & Plan: Condition: symptomatic Source of diagnosis: Review of systems, Physical Exam, Medication and Diagnosis confirmed from PCP record and currently active Follow up in: one month Seasonal allergies 09/22/2016 Overview (05/06/2023): Last Assessment & Plan: Condition: asymptomatic Source of diagnosis: Review of systems, Physical Exam, Medication and Diagnosis confirmed from PCP record and currently active Follow up in: if symptoms worsen or fail to improve Tobacco use disorder 09/14/1983 Overview (05/06/2023): Last Assessment & Plan: Condition: stable Source of diagnosis: Review of systems, Physical Exam, Medication and Diagnosis confirmed from PCP record and currently active Follow up in: one month Assessment & Plan (02/06/2025 5:44 PM CIRCUS TRAIN SUPERVISOR): Chronic, present for a number of years, recommend smoking cessation Assessment & Plan (08/09/2024 4:32 PM CDT): Chronic, recommend smoking cessation. She would like to proceed with low-dose CT chest as she now just meets the criteria. We discussed risks versus benefits of screening. Assessment & Plan (08/05/2024 5:23 AM CDT): >>ASSESSMENT AND PLAN FOR SMOKING WRITTEN ON 07/23/2022 3:27 PM BY RON BARILLAS - Ongoing, 0.5 - 1 ppd - Provided counseling on smoking cessation, she will try to decrease amount on her own for now Assessment & Plan (08/05/2024 5:23 AM CDT): >>ASSESSMENT AND PLAN FOR SMOKING WRITTEN ON 04/21/2023 5:17 PM BY DENZEL BULLOCK MD Cessation counseling provided today. Patient ready to quit. Will continue to director counseling bureau at future appointments Hepatic steatosis Resolved Problems Problem Noted Date Diagnosed Date Resolved Date Hyperglycemia due to type 2 diabetes mellitus 04/30/19 24 01/25/2024 Overview (05/06/2023): Last Assessment & Plan: Condition: worsening Source of diagnosis: Review of systems, Physical Exam, Medication and Diagnosis confirmed from PCP record and currently active Last A1c result: 9.9 on (date): 04/21/2023 Source: Care Everywhere Diabetes Program Problem: Diabetes A1C Tracking Goal: Member's A1C level will decrease from current level to goal level (listed below) in the next 90 days Current A1c: 9.9 Interventions: Visit Provider taught member that the A1C test provides information of what their blood sugar levels have averaged over the last three months, Visit Provider taught member on ways to decrease their A1C level such as avoiding high sugary drinks/foods, starchy/carbohydrates,etc., Visit Provider taught member the need and advantage of maintaining their A1C levels below 7%, Member will comply with the necessary A1C testing and coordinate care with provider and/or Aboriginal Liaison Officer as needed Follow up in: three months with PCP Annual physical exam 04/21/2023 024 Overview (08/04/2023): Kelby Winters. Assessment & Plan (04/21/2023 5:20 PM CIRCUS TRAIN SUPERVISOR): Doing well. BMI: 35.0 ( Obese) Routine labs ordered - A1C Preventative Screening Due: Mammo, Cologuard ordered, referral to auto roller for Pap Dietary and exercise recommendations given today. Recommend exercise at least 30 minutes moderate to vigorous exercise and some strength training most days of the week. (minimum 150 minutes weekly) Discussed MyPlate recommendations and increasing fruits and vegetables Vaccines due - PCV 20, zoster RTC annually for f/u Unstable angina 09/05/2021 09/07/2022 Pseudohyponatremia 02/13/2021 Folliculitis 09/10/2020 09/07/2022 Cellulitis of right axilla 09/10/2020 0 07/28/2022 Pain and swelling of right lower extremity 07/07/2019 05/17/2024 Status post insertion of sudhakar g-eluting stent into right coronary artery for coronary artery disease 09/18/2018 09/07/2022 CKD stage 3 secondary to diabetes 08/27/2018 08/04/2023 Overview (08/04/2023): Erroneous entry, eGFR mostly > 60. BARRAGAN (dyspnea on exertion) 10/31/2017 03 /06/2024 Encounters Date Type Department Care Team Description 02/06/2025 3:00 PM CIRCUS TRAIN SUPERVISOR Office Visit [facility] [address] [place] [address] Amy Mott MD Type 2 diabetes mellitus with other circulatory complication, with long-term current use of insulin (Primary Dx); Hypertension associated with type 2 diabetes mellitus (HCC); Hyperlipidemia associated with type 2 diabetes mellitus (HCC); Chronic diastolic congestive heart failure (HCC); Bipolar affective disorder, currently depressed, mild (HCC); Class 1 obesity due to excess calories with serious comorbidity and body mass index (BMI) of 32.0 to 32.9 in adult; Asthma-COPD overlap syndrome (HCC); Tobacco use disorder; Chronic pain of both shoulders 02/02/2025 3:30 PM CIRCUS TRAIN SUPERVISOR Lab [facility] [address] [place] [address] Hypertension associated with type 2 diabetes mellitus (HCC); Hyperlipidemia associated with type 2 diabetes mellitus (HCC); Type 2 diabetes mellitus with other circulatory complication, with long-term current use of insulin 01/31/2025 1:15 PM CIRCUS TRAIN SUPERVISOR Office Visit [facility] [address] [place] [address] Babak Pino MD Coronary artery disease involving soboba coronary artery of soboba heart without angina pectoris (Primary Dx) from Last 3 Months Immunizations Immunization Administration Dates Next Due Influenza, Quadrivalent, Marisol l Culture-based MDCK, Antibiotic Free, Intramuscular 04/16/2018 Influenza, Quadrivalent, Marisol l Culture-based MDCK, Preservative Free, Antibiotic Free, Intramuscular 01/19/2020 Influenza, Quadrivalent, Rec ombinant, Egg Free, Preservative Free, Intramuscular 12/28/2018 Influenza, Quadrivalent, Spl it, Preservative Free, Intramuscular 12/31/2022,01/24/2021 Influenza, Trivalent, Cell C ulture-based MDCK, Preservative Free, Antibiotic Free, Intramuscular 01/03/2025,01/19/2020 Influenza, Trivalent, Preservative Free, Intramu scular 01/25/2024 Influenza, Unspecified 01/14/2021 Pneumococcal Conjugate Pcv20 06/06/2023 Pneumococcal Polysaccharide PPV23 02/13/2015 Tdap 03/28/2022 Surgical History Surgery Date Site/Laterality Comments LAPAROSCOPIC SALPINGOOPHERECTOMY LAPAROSCOPIC APPENDECTOMY WISDOM TOOTH EXTRACTION CARDIAC STENT PLACEMENT Past procedures DIABETES EYE EXAM 06/15/2024 Bilateral [facility] Care Retina View exam, no diabetic retinopathy. Mona Arizmendi, METER READERS SUPERVISOR CARDIAC STENT PLACEMENT 09/06/2021 Right Succesfull PCI to RCA with [address] Alvarez Campos MAMMOGRAPHY 08/05/2024 Bilateral Negative, AMS. Medical History Medical History Date Comments COPD (chronic obstructive pu lmonary disease) Type 2 diabetes mellitus Coronary artery disease Stented coronary artery 09/18/2018 LAD./ NSTEMI (non-ST elevated myoc ardial infarction) ([facility]) 09/22/2016 Formatting of this note migh t be different from the original. Overview: History of 5 MIs, last was 10/2015. She has 4 stents. CKD stage 3 secondary to myrna odalys ([facility]) 08/27/2018 Erroneous entry, eGFR mostly > 60. Annual physical exam 04/21/2023 Kelby Winters . Family History Medical History Relation Name Comments Heart disease Mother Skin cancer Mother Relation Name Status Comments Mother Social History Tobacco Use Types Packs/Day Years Used Date Smoking Tobacco: Every Day Cigarettes 0.5 41.9 Started: 03/16/1983 Tobacco Cessation:Ready to Q uit: Not Asked; Counseling Given: Not Answered AUDIT-C Answer Date Recorded Q1: How often do you have a drink containing alcohol? Never 09/05/2021 Q2: How many drinks containi ng alcohol do you have on a typical day when you are drinking? Patient does not drink Q3: How often do you have si x or more drinks on one occasion? Never 09/05/2021 PHQ-2 Answer Date Recorded PHQ-2 Total Score (If total score is 3 or more points, staff should administer the PHQ-9) 1 02/06/2025 Personal Safety Answer Date Recorded Getting School Help Needed Yes 03/15 Comments No Sex and Gender Information Value Date Recorded Sex Assigned at Not on file Legal Sex Female 10:10 AM CIRCUS TRAIN SUPERVISOR Gender Identity Not on file Sexual Orientation Not on file Obstetrics History Para Term AB IAB SAB Ectopic Multiple Livin g Live Births 2 2 2 2 2 Date Outcome GA Total Labor Labor/2nd/3rd Weight Sex Type Anes PTL Teresa A1 A5 Name Clin 11/05 Term 40w 0d 3.487 kg (7 lb 11 oz) F Vaginal Living Complications:None 12/19 Term 40w 0d 3.175 kg (7 lb) F Vaginal Living Complications:None Last Filed Vital Signs Vital Sign Reading Time Taken Comments Blood Pressure 136/62 02/06/2025 3:25 PM CIRCUS TRAIN SUPERVISOR Pulse 93 02/06/2025 3:25 PM CIRCUS TRAIN SUPERVISOR Temperature 36.4 C (97.5 F) 02/06/2025 3:25 PM CIRCUS TRAIN SUPERVISOR Respiratory Rate 16 02/06/2025 3:25 PM CIRCUS TRAIN SUPERVISOR Oxygen Saturation 95% 02/06/2025 3:25 PM CIRCUS TRAIN SUPERVISOR Inhaled Oxygen Concentration - - Weight 88.8 kg (195 lb 12.8 oz) 02/06/2025 3:25 PM CIRCUS TRAIN SUPERVISOR Height 162.6 cm (5' 4.02) 02/06/2025 3:25 PM CS T Body Mass Index 33.59 02/06/2025 3:25 PM CIRCUS TRAIN SUPERVISOR Plan of Treatment Health Maintenance Due Date Last Done Comments Colon Cancer Screening-Colonoscopy 1965 Lung Cancer Screening 2014 Zoster Vaccine (1 of 2) 2014 Dilated Eye Exam 06/15/2025 06/15/2024, 08/29/2020 Hemoglobin A1C 08/02/2025 02/02/2025, 07/14, 01/25/2024, Additional history exists Breast Cancer Screening-Mammogram 08/05/2025 08/05/2024, 04/21/2023, 10/17/2016 Albumin Creatinine Ratio, Urine 02/02/2026 02/02/2025, 01/25/2024, 04/21/2023, Additional history exists Lipid Panel 02/02/2026 02/02/2025, 01/14, 05/15/2022, Additional history exists eGFR 02/02/2026 02/02/2025, 07/14, 01/25/2024, Additional history exists Depression Screening 02/06/2026 02/06/2025, 08/05/2024, 05/10/2024, Additional history exists Foot Exam 02/06/2026 02/06/2025, 07/15, 08/05/2023, Additional history exists Regular Well Visit/Exam 18-64 02/06/2026, 05/19/2023, 04/21/2023 Cervical Cancer Screening 05/18/2028 05/19/2023, 07/2023 DTaP/Tdap/Td Vaccine (2 - Td or Tdap) 03/28/2032 03/28/2022 Pneumococcal vaccine <65 Completed 06/06/2023, 12/0 03/2014 Hepatitis B Screening Completed 01/25/2024 Hepatitis C Screening Completed 01/25/2024 Covid-19 Vaccine Completed 01/03/2025, , 12/31/2022, Additional history exists Influenza Vaccine Completed 01/03/2025, , 12/31/2022, Additional history exists Medical Devices Implanted Type Area Professor Of Management Device Identifier Shelf Expiration Date Model / Serial / Lot Synergy 3.0x38mm [place]rington Coronary Stent [id number] - [id number] Implanted:Qty: 1 on 09/06/2021 by Babak Pino MD at [facility] [employer] 12/20/2021 [id number] 300 / / [id number] [employer] Synergy 3.5mm 38mm 144cm Radiopaque 1 Access Port Inflation Lumen [id number] - [id number] Implanted:Qty: 1 on 09/06/2021 by Babak Pino MD at [facility] [employer] 06/20/2022 [id number] 350 / / [id number] [employer] Synergy 4mm 12mm 144cm Radiopaque 1 Access Port Inflation Lumen [id number] - [id number] Implanted:Qty: 1 on 09/06/2021 by Babak Pino MD at [facility] [employer] 01/16/2022 [id number] 400 / / [id number] Ang[employer] 6fr Vascular Closure [id number] - [id number] Implanted:Qty: 1 on 09/06/2021 by Babak Pino MD at [facility] 02/12/2022 [id number] / / [id number] Procedures Procedure Name Priority Date/Time Associated Diagnosis Comments EGFR Routine 02/02/2025 3:22 PM CIRCUS TRAIN SUPERVISOR Hypertension associated with type 2 diabetes mellitus (HCC) HEMOGLOBIN A1C Routine 02/02/2025 3:22 PM CIRCUS TRAIN SUPERVISOR Type 2 diabetes mellitus with other circulatory complication, with long-term current use of insulin COMPREHENSIVE METABOLIC PANEL Routine 02/02/2025 3:22 PM CIRCUS TRAIN SUPERVISOR Hypertension associated with type 2 diabetes mellitus (HCC) LIPID PANEL Routine 02/02/2025 3:22 PM CIRCUS TRAIN SUPERVISOR Hyperlipidemia associated with type 2 diabetes mellitus (HCC) ALBUMIN CREATININE RATIO, URINE Routine 02/02/2025 3:22 PM CIRCUS TRAIN SUPERVISOR Hypertension associated with type 2 diabetes mellitus (HCC) SCREENING MAMMOGRAM BILATERAL W EDOUARD Schedule Routine, Read Routine (OP Routine) 08/05/2024 2:02 PM CDT Encounter for screening mammogram for malignant neoplasm of breast HM DIABETES EYE EXAM Routine 06/15/2024 5:48 AM CDT HEPATITIS C ANTIBODY Routine 01/25/2024 2:50 PM CIRCUS TRAIN SUPERVISOR Need for hepatitis C screening test HIGH RISK HPV DNA DETECTION WITH GENOTYPING Routine 05/19/2023 2:25 PM CIRCUS TRAIN SUPERVISOR Screening for malignant neoplasm of cervix from Last 3 Months or Most Recently Relevant to Health Maintenance Results * eGFR (02/02/2025 3:22 PM CIRCUS TRAIN SUPERVISOR) eGFR 73 >=60 mL/min/1. 73 m2 Comment: Interpretive Data Reference Interval Normal >/= 90 mL/min/1.73m2 Mildly decreased* 60 - 89 mL/min/1.73m2 Mildly to moderately decreased 45 - 59 mL/min/1.73m2 Moderately to severely decreased 30 - 44 mL/min/1.73m2 Severely decreased 15 - 29 mL/min/1.73m2 Kidney Failure < 15 mL/min/1.73m2 *Relative to young adult level Estimated glomerular filtration rate is determined by the 2020 CKD-EPI equation recommended by the National Kidney Foundation (A Unifying Approach to GFR Estimation: Recommendations of the NKF-ASK Task Force on Reassessing the Inclusion of Race in Diagnosing Kidney Disease, JASN 2020). The CKD-EPI equation should not be used for patients with unstable renal function and has not been validated in children and those over 70. Current interpretive data was last reviewed 2021. Testing performed by: [address] [address] Blood 02/02/2025 3:22 PM CIRCUS TRAIN SUPERVISOR 02/02/2025 8:49 PM CIRCUS TRAIN SUPERVISOR us Amy Mott MD LAB BLOOD ORDERABLES Final Re sult Performing Organization Address [facility] de Phone Number DUANE [address] Department [place] [address] * Albumin Creatinine Ratio, Urine (02/02/2025 3:22 PM CIRCUS TRAIN SUPERVISOR) Albumin Ur <12.0 mg/L Comment: Interpretive Data No reference range established. Current interpretive data was last revised 2018. Testing performed by: [address] [address] Creatinine Ur 17.5 mg/dL DUANE YEN Comment: Interpretive Data No reference range established. Current interpretive data was last revised 2018. Testing performed by: [address] [address] Albumin Creatinine Ratio, Ur See Comment 1 - 29 DUANE YEN Comment: Unable to calculate Testing performed by: [address] [address] Urine 02/02/2025 3:22 PM CIRCUS TRAIN SUPERVISOR 02/02/2025 8:26 PM CIRCUS TRAIN SUPERVISOR us Amy Mott MD LAB URINE ORDERABLES Final Re sult Performing Organization Address [facility]/ZIP Co de Phone Number DUANE [phone] [facility] Department [place] [address] * (ABNORMAL) Hemoglobin A1c (02/02/2025 3:22 PM CIRCUS TRAIN SUPERVISOR) Hgb A1C 7.1(H) 4.0 - 5.6 % Comment:Testing performed by : [address] [address] Estimated Average Glucose 157 mg/dL DUANE Comment: The ADA recommends reporting an estimated Average Glucose (eAG) with all Hemoglobin A1c results using the equation derived from a study of 507 normal and diabetic adults. Minority populations were underrepresented and children were not included. (Diabetes Care 31:3150-9267, 2008). The eAG is not equivalent to a fasting glucose. Testing performed by: [address] [address] Blood 02/02/2025 3:22 PM CIRCUS TRAIN SUPERVISOR 02/02/2025 8:26 PM CIRCUS TRAIN SUPERVISOR Amy Mott MD LAB BLOOD ORDERABLES Final Re amee Performing Organization Address [facility] Co de Phone Number [facility] [address] [facility] [place] [address] * (ABNORMAL) Lipid panel (02/02/2025 3:22 PM CIRCUS TRAIN SUPERVISOR) Pathologist [facility] Cholesterol 115 30 - 199 mg/dL Comment: Interpretive Data Ages < or = 19 years Acceptable: <170 mg/dL Borderline high: 170-199 mg/dL High: >or= 200 mg/dL Ages > or = 20 years Desirable: <200 mg/dL Borderline high: 200-239 mg/dL High: >or= 240 mg/dL Literature References: 1. Expert Panel on Integrated Guidelines for Cardiovascular Health and Risk Reduction in Children and Adolescents. Pediatrics 2011;128:S213 2. NCEP Expert Panel. Circulation 2004;110:227 Current Interpretive Data was last revised on 2017. Testing performed by: [address] [place] [address] Triglycerides 170(H) <=149 mg/dL DUANE Comment: Interpretive Data Ages < or = 9 years Acceptable: <75 mg/dL Borderline high: 75-99 mg/dL High: >or= 100 mg/dL Ages 10 to 20 years Acceptable: <90 mg/dL Borderline high: 90-129 mg/dL High: >or= 130 mg/dL Ages > or = 20 years Desirable: <150 mg/dL Borderline high: 150-199 mg/dL High: 200-499 mg/dL Very high: >or= 499 mg/dL Literature References: 1. Expert Panel on Integrated Guidelines for Cardiovascular Health and Risk Reduction in Children and Adolescents. Pediatrics 2011;128:S213 2. NCEP Expert Panel. Circulation 2004;110:227 Current Interpretive Data was last revised on 2017. Testing performed by: [address] [address] HDL 32(L) >=40 mg/dL DUANE Comment: Interpretive Data Ages < or = 19 years Acceptable: >45 mg/dL Borderline low: 40-45 mg/dL Low: <40 mg/dL Ages > or = 20 years Desirable: >or= 60 mg/dL Low: <40 mg/dL Literature References: 1. Expert Panel on Integrated Guidelines for Cardiovascular Health and Risk Reduction in Children and Adolescents. Pediatrics 2011;128:S213 2. NCEP Expert Panel. Circulation 2004;110:227 Current Interpretive Data was last revised on 2017. Testing performed by: [facility], [address] [place] [address]., [address] LDL, calculated 54 <=129 mg/dL DUANE Comment: Interpretive Data Ages < or = 19 years Acceptable: <110 mg/dL Borderline high: 110-129 mg/dL High: >or= 130 mg/dL Ages > or = 20 years Optimal: <100 mg/dL Near optimal: 100-129 mg/dL Borderline high: 130-159 mg/dL High: >160 mg/dL Calculated using the Willard LDL-C estimating equation. This equation was implemented on 2023. Prior to this date LDL-C was estimated using the Friedewald equation. Literature References: 1. Expert Panel on Integrated Guidelines for Cardiovascular Health and Risk Reduction in Children and Adolescents. Pediatrics 2011;128:S213 2. NCEP Expert Panel. Circulation 2004;110:227 3. Lamar M et al. LYN Cardiol. 2020 July 14;5(5):540-548. doi: 10.1001/[email or web address].[email or web address] Current Interpretive Data was last revised on 2023. Testing performed by: [address] [address] Non-HDL Cholesterol 83 mg/dL DUANE Comment: Interpretive Data Ages < or = 19 years Acceptable: <120 mg/dL Borderline high: 120-144 mg/dL High: >145 mg/dL Ages > or = 20 years When triglycerides are >200 mg/dL, Non-HDL cholesterol is a secondary target of therapy with treatment goals that are 30 mg/dL greater than the LDL cholesterol target. Literature References: 1. Expert Panel on Integrated Guidelines for Cardiovascular Health and Risk Reduction in Children and Adolescents. Pediatrics 2011;128:S213 2. NCEP Expert Panel. Circulation 2004;110:227 Current Interpretive Data was last revised on 2017. Testing performed by: [address] [address] Chol/HDL ratio 4 CERNER Comment:Testing performed by : [address] [address] Blood 02/02/2025 3:22 PM CIRCUS TRAIN SUPERVISOR 02/02/2025 8:26 PM CIRCUS TRAIN SUPERVISOR us Amy Mott MD LAB BLOOD ORDERABLES Final Re sult [address] Department [place] [address] * (ABNORMAL) Comprehensive metabolic panel (02/02/2025 3:22 PM CIRCUS TRAIN SUPERVISOR) Sodium 140 135 - 145 mmol/L Comment:Testing performed by : [address] [address] Potassium, pl 4.5 3.3 - 4.9 mmol/L DUANE Comment:Testing performed by : [address] [address] Chloride 106 97 - 110 mmol/L DUANE Comment:Testing performed by : [address] [place]., [address] CO2 21(L) 22 - 32 mmol/L CERNER CH Comment:Testing performed by : [address] [address] Anion gap 13 2 - 15 mmol/L CERNER CH Comment:Testing performed by : [address] [address] BUN 14 6 - 25 mg/dL CERNER CH Comment:Testing performed by : [address] [address] Creatinine 0.90 0.60 - 1.10 mg/dL CERNER CH Comment:Testing performed by : [address], [address] Glucose 124 70 - 199 mg/dL CERNER CH Comment: Interpretive Data Fasting glucose >/= 126 mg/dl is diagnostic for diabetes. Fasting is defined as no caloric intake for at least 8 hours. Fasting glucose between 100 mg/dl to 125 mg/dl is diagnostic of prediabetes. In a patient with classic symptoms of hyperglycemia or hyperglycemic crisis, a random glucose >/= 200 mg/dl is diagnostic for diabetes. In the absence of unequivocal hyperglycemia, results should be confirmed by repeat testing. The classification and Diagnosis of Diabetes Diabetes Care 202; 46: S19-S40. Current interpretive data was last revised 2022. Testing performed by: [address] [address] Calcium 8.9 8.5 - 10.3 mg/dL CERNER CH Comment:Testing performed by : [address] [address] Bilirubin, total 0.4 0.1 - 1.2 mg/dL CERNER CH Comment:Testing performed by : [address] [address] Protein, pl 6.9 6.5 - 8.5 g/dL CERNER CH Comment:Testing performed by : [address] [address] Albumin 4.4 3.5 - 5.0 g/dL CERNER CH Comment:Testing performed by : [address] [address] Alk phos 93 40 - 130 Units/L CERNER CH Comment:Testing performed by : [facility], [address] [place] [address]., [address] ALT 25 7 - 45 Units/L DUANE Comment:Testing performed by : [facility], [address] [place] [address]., [address] AST 27 10 - 45 Units/L DUANE Comment:Testing performed by : [facility], [address] [place] [address]., [address] Blood 02/02/2025 3:22 PM CIRCUS TRAIN SUPERVISOR 02/02/2025 8:26 PM CIRCUS TRAIN SUPERVISOR us Amy Mott MD LAB BLOOD ORDERABLES Final Re sult DUANE [id number] [place] [address] Department [place] [address] * Screening Mammogram Bilateral W Edouard (08/05/2024 2:02 PM CDT) Anatomical Region Laterality Modality Breast Bilateral Mammography Impressions 08/05/2024 2:44 PM CDT Bilateral No evidence of malignancy in either breast. OVERALL BI-RADS FINAL ASSESSMENT: 1 - Negative RECOMMENDATION: Recommend bilateral annual screening mammography. Narrative 08/05/2024 2:44 PM CDT EXAMINATION: Screening Mammogram Bilateral W Edouard: 08/05/2024 COMPARISON: Relevant prior studies available at the time of interpretation were reviewed. TECHNIQUE: Mammography was performed with 2D and digital breast tomosynthesis (DBT) images. CAD was utilized. BREAST PARENCHYMAL COMPOSITION: The breasts are almost entirely fatty. FINDINGS: Bilateral There is no suspicious mass, calcification, or architectural distortion in either breast. us Amy Mott MD IMG MAMMO PROCEDURES Final Re sult * DIABETES EYE EXAM (06/15/2024 5:48 AM CDT) SCRIBED DIABETIC DILATED EYE EXAM Normal Impressions Amy Mott MD - 06/15/2024 5:48 AM CDT No diabetic retinopathy. Narrative Amy Mott MD - 06/15/2024 5:48 AM CDT Retinaview exam, [facility]. Mona Arizmendi RN HEALTH MAINTENANCE Final Result * Hepatitis C antibody Blood (01/25/2024 2:50 PM CIRCUS TRAIN SUPERVISOR) Pathologist [facility] Hep C Ab Nonreactive Nonreactive Comment: Interpretive Data Nonreactive: Antibodies to HCV not detected. Does NOT exclude the possibility of recent exposure to HCV. Equivocal: Equivocal for HCV antibodies. Supplemental molecular testing will be automatically performed to determine infection status in accordance with current CDC screening recommendations. Reactive: Positive for HCV antibodies. This may represent current or past HCV infection. Supplemental molecular testing will be automatically performed to determine current infection status in accordance with current CDC screening recommendations. Interpretive data was last revised on 2019. Blood 01/25/2024 2:50 PM CIRCUS TRAIN SUPERVISOR 01/25/2024 6:43 PM CIRCUS TRAIN SUPERVISOR Result [facility] Amy Mott MD LAB MICROBIOLOGY - GENERAL OR DERABLES Final Result Performing Organization Address City/State/[facility] Co de Phone Number [facility] [address] Department of Laboratories [place], [place] [id number] * High Risk HPV DNA Detection with Genotyping (Molecular component) (05/19/2023 2:25 PM CIRCUS TRAIN SUPERVISOR) [facility] HPV HR 16 Not Detected Not Detected [facility] Comment:Testing performed by : [facility], [address] [facility] [place] [address] HPV HR 18 Not Detected Not Detected [facility] Comment:Testing performed by : [facility], [address] [place]., [address] HPV HR Non 16/18 Not Detected Not Detected [facility] Comment: Interpretive Data Nucleic acid amplification for detection of high-risk Human Papilloma virus (HPV) is performed by the Yenny Purnima 6800 HPV test. This assay specifically detects HPV-16 and HPV-18 genotypes. The following HPV genotypes are detected as high-risk HPV: HPV-31, 33, 35, ,39, 45, 51, 52, 56, 58, 59, 66, and 68. This assay has been approved by the [place] Food and Drug Administration for detection of HPV in cervical specimens collected by a physician using an endocervical brush/spatula or cervical broom and placed in the ThinPrep Pap Test PreservCyt collection containers. The performance characteristics of this test have been verified by the [facility] Molecular Infectious Disease laboratory. Correlate with separately reported cytology results, as applicable. Interpretive data last revised 22 Testing performed by: [facility], [address] [place]., [address] Endocervical 05/19/2023 2:25 PM CIRCUS TRAIN SUPERVISOR 05/20/2023 9:48 AM CIRCUS TRAIN SUPERVISOR Jeromy ZEPEDA CH - 05/21/2023 4:25 AM CIRCUS TRAIN SUPERVISOR Clinical history and diagnosis->Liquid-based PAP test with high risk HPV test- Z12.4 Number of vials->1 Testing type->Screening Last menstrual period (date if known)->N/A Menstrual status->Postmenopausal Susi Pardo DO LAB BODY FLUIDS AND STO OLS ORDERABLES Final Result [facility] [id number] [place] [address] [facility] from Last 3 Months or Most Recently Relevant to Health Maintenance Insurance [facility] Member Subscriber Plan / Payer (Ef fective 2020-Present) Name:Michelle Ayers Relation to Subscriber:Self Name:Michelle Ayers Payer ID:[id number] (NAIC) Type:MEDICARE RISK OTHER Address: [address] Advance Directives For more information, please contact: [phone] * Full Code (Latest Code Status on File) Date Activated Date Inactivated Comments 09/05/2021 6:42 PM 09/07/2021 10:22 PM * Full Code Date Activated Date Inactivated Comments 02/13/2021 5:27 AM 02/13/2021 11:22 PM Care Teams Vegetable Cook Relationship Specialty Start Date End Date Amy Mott MD [address] [place] [address] PCP - General Internal Medicine 08/05/23 Babak Pino MD Consulting Physician Cardiology 09/07/21 Prerna Barker OD [address] [place] [id number] Consulting Physician Optometry 09/11/24
--- OUTSIDE RECORDS SUMMARY | 2025-02-10 14:14 | XMS_ITS ---
Author Name ANDRES PLEITEZ Address [address] [place] [address] Phone [facility] Address [address] [place] [address] Phone Care Team Providers Care Production Line Solderer Name Role Phone ERICKSON PLEITEZ ANDRES Unavailable [phone] ALLERGIES, ADVERSE REACTIONS AND ALERTS Allergy Name Allergy Date Allergy Status Allergy Severity Allergy Reaction Tramadol, [RxNorm: 38397] 12/01/2021 Current MEDICATIONS RxNorm Brand Name Prescription Ordered Value Order Unit Start Date Date Status Fill Status Indications 759892 amoxicil maria luz-pot clavulan ate 875-125 mg tablet SIG: amoxicillin-p ot clavulanate 875-125 mg oral tablet, 10 days, Dispense #20 Tablet, 0 Refills, Directions: Take 1 oral tablet 2 times a day. Take with food. Take until gone. 20 tablet 2021 Current [id number] Lidocain e Viscous 2 % solution SIG: [...] SPECIFIED COUNSELING OTHER SPECIFIED COUNSELING Chronic 11/30/2021 [id number]-Fwyuwjd obstructive lung disease Chronic obstructive lung disease Current 12/01/2021 [id number] Anxiety Current 12/01/2021 [id number]-Yjtwpjqzzm disorder Depressive disorder Current 12/01/2021 [id number]-Ojjmyzmt Migraine Current 12/01/2021 [id number]-Dbigxn Asthma Current 12/01/2021 [id number]-Ekyylolrictw geal reflux disease Gastroesophageal reflux disease Current 12/01/2021 [id number]-Jpezgwsp arteriosclerosis Coronary arteriosclerosis Current 12/01/2021 [id number]-Iliicxbtyzzub rolemia Hypercholesterolemia Current 12/01/2021 5202281-Nivgagbas Arthritis Current 12/01/2021 30369429-Xutmwbdf of fallopian tube Ligation of fallopian tube Current 12/01/2021 [id number]-Ftlfnyqfawql Appendectomy Current 12/01/2021 [id number]-Ubddylbtkstx Hysterectomy Current 12/01/2021 [id number]-Insuczx coronary artery Stented coronary artery Current 12/01/2021 [...] Not Recorded Sex: Female CARE TEAM INFORMATION Production Line Solderer Provider ID Role Location Phone ANDRES PLEITEZ [id number] [address] [place] [id number] INSURANCE PROVIDERS Payer Name Policy type / Coverage type Covered republican ID Policy [place] Medicaid [id number] SELF [facility] MEDICARE Medicare [id number] SELF
[2025-02-10 14:26] VITALS: BP 145/78; PULSE 52; RESP 22; TEMP 36.6; O2SAT 97
[2025-02-10 14:40] LABS: EDCOVIDSCREEN Negative (Negative); EDINFLUASCREEN Negative (Negative); EDINFLUBSCREEN Negative (Negative); EDSTREPNEGPOS1 Negative (Negative)
--- NOTE | 2025-02-10 14:52 | ED.URI ---
HPI - URI/Sore Throat General Chief Complaint: Upper Respiratory Infection Stated Complaint: cough/nausea Time Seen by Provider: 02/10/25 14:52 Source: patient Mode of arrival: ambulatory Limitations: no limitations History of Present Illness HPI Narrative: 59 yo F presents with cough, chest congestion, fatigue for for 3 to 4 days. hx of COPD. All systems reviewed and negative except as noted above. . Related Data Home Medications ?Medication ?Instructions ?Recorded ?Confirmed ?Last Taken ?Type atorvastatin 80 mg tablet 80 mg PO DAILY 12/11/20 04/25/22 Unknown History clopidogrel 75 mg tablet 75 mg PO DAILY 12/11/20 04/25/22 Unknown History lisinopril 20 mg tablet 20 mg PO DAILY 12/11/20 04/25/22 Unknown History omeprazole 40 mg capsule,delayed 40 mg PO DAILY 12/11/20 04/25/22 Unknown History release carvedilol 6.25 mg tablet mg 03/14/24 Unknown History empagliflozin 25 mg tablet mg 03/14/24 Unknown History (Jardiance) ezetimibe 10 mg tablet mg 03/14/24 Unknown History insulin degludec 100 unit/mL (3 unit subcut 03/14/24 Unknown History mL) subcutaneous pen (Tresiba FlexTouch U-100 insulin) insulin lispro 100 unit/mL subcut 03/14/24 Unknown History subcutaneous pen (Admelog SoloStar U-100 Insulin lispro) tirzepatide 10 mg/0.5 mL mg subcut 02/10/25 Unknown History subcutaneous pen injector (Mounjaro) tizanidine 2 mg tablet mg 02/10/25 Unknown History Allergies Allergy/AdvReac Type Severity Reaction Status Date / Time tramadol AdvReac Vomiting Verified 02/10/25 14:25 [facility] Past Medical History Medical History Elevated cholesterol GERD (gastroesophageal reflux disease) Hypertension CAD (coronary artery disease) Anxiety MRSA cellulitis UTI (urinary tract infection) Heart attack Diabetes Surgical History Surgical History H/O heart artery stent X7 History of appendectomy History of right salpingo-oophorectomy Family History Family History Grandparent Cerebrovascular accident Mother Diabetes mellitus Heart disease Social History Social History Smoking packs per day: 0.5 Smoking cigarettes per day: 10.0 Years smoked: 40 Smoking pack-years: 20.00 Smoking status: Current every day smoker Tobacco type: cigarettes Alcohol intake: former Alcohol use details: social Substance use: current Substance use type: marijuana Living arrangements: alone Gender identity (if verbalized by the patient): Female Comments At time of signature, agree with nursing past medical, surgical, social and family history. There is no relevant family history pertinent to the presenting complaint. Exam Narrative: GENERAL: This is a well-nourished, well-developed patient, Ill-appearing but no acute distress HEAD: normocephalic, atraumatic. EYES: PERRL. Sclera clear/white. Vision is grossly intact. EARS: External ears normal, auditory canals clear and without drainage, TMs normal without perforation. Hearing grossly intact. NOSE: External nose normal with mild congestion, clear nasal drainage THROAT: Mucous membranes moist, posterior pharynx clear. NECK: Neck supple, non-tender without lymphadenopathy, masses or thyromegaly. CARDIOVASCULAR: Regular rate and rhythm without murmurs, gallops, or rubs. RESPIRATORY: rhonchi and coarse throughout lung bravo. Breath sounds equal bilaterally. SKIN: warm, Dry, intact with no suspicious lesions or rash, good texture and turgor. NEURO: awake, alert, and oriented to person, place and time. There were no obvious focal neurologic abnormalities. EXTREMITIES: No joint tenderness, effusion, or edema noted. Course Course Level of Care: Express Care Visit Reevaluation(s) Reevaluation #1: lung sounds improved, mild expiratory wheeze bilateral bases Vital Signs Vital signs: Vital Signs Temperature 36.6 C 02/10/25 14: Pulse Rate 52 L 02/10/25 14: Respiratory Rate 22 H 02/10/25 14: Blood Pressure 145/78 H 02/10/25 14: Pulse Oximetry 97 02/10/25 14: Oxygen Delivery Room Air 02/10/25 14: Temperature 36.6 C 02/10/25 14: Pulse Rate 52 L 02/10/25 14:26 Respiratory Rate 22 H 02/10/25 14:26 Blood Pressure 145/78 H 02/10/25 14:26 Pulse Oximetry 97 02/10/25 14:26 Oxygen Delivery Room Air 02/10/25 14:26 reviewed MDM - URI/Sore Throat MDM Narrative Medical decision making narrative: normal chest x-ray. Recommend continue inhalers, neb treatments at home. Will start prednisone today. No respiratory distress. Recommend follow-up with If not improving. Lab Data Labs: Lab Results 02/10/25 Range/Units 14:38 POC Influenza A Ag Negative (Negative) POC Influenza B Ag Negative (Negative) POC SARS CoV-2 Ag Negative (Negative) POC Grp A Strep Screen Negative (Negative) Imaging Data My impression: Agree with radiologist Radiologist's impression: EXAMINATION: XR chest 2V, 02/10/2025 14:30 LI[employer]OR [employer]OR[employer] AND AGENCIES SUPERVISOR HISTORY: COUGH, CONGESTION COMPARISON: No comparisons available. Technique: 2 views obtained. Findings: The lungs are clear, no effusion. No pneumothorax. Heart is normal size. Mediastinal and hilar contours are within normal limits. Bony thorax no acute abnormality. Impression: No acute cardiopulmonary abnormality. Discharge Plan Discharge Clinical Impression: Acute exacerbation of chronic obstructive pulmonary disease Patient Disposition: Home Condition: Stable Instructions: COPD (Chronic Obstructive Pulmonary Disease) (ED) Additional Instructions: Your COVID and influenza test were negative today. Your chest x-ray was negative. Take medications as prescribed. Continue using albuterol inhaler as prescribed. Start ljxn-[id number] Mucinex and take as directed on packaging. Drink at least 64 oz of water a day. See your doctor if not improving. Patient Language: Polish Prescriptions: New benzonatate 200 mg capsule 200 mg PO TID PRN (Reason: cough) Qty: 20 0RF prednisone 20 mg tablet 40 mg PO DAILY 5 Days Qty: 10 0RF No Action carvedilol 6.25 mg tablet insulin lispro [Admelog SoloStar U-100 Insulin] 100 unit/mL insulin pen SUBCUT ezetimibe 10 mg tablet insulin degludec [Tresiba FlexTouch U-100] 100 unit/mL (3 mL) insulin pen SUBCUT Jardiance 25 mg tablet albuterol sulfate 90 mcg/actuation HFA aerosol inhaler 2 puff inhalation QID PRN (Reason: shortness of breath or wheezing) Qty: 6.7 0RF tizanidine 2 mg tablet Mounjaro 10 mg/0.5 mL pen injector SUBCUT clopidogrel 75 mg tablet 75 mg PO DAILY omeprazole 40 mg capsule,delayed release(DR/EC) 40 mg PO DAILY atorvastatin 80 mg tablet 80 mg PO DAILY lisinopril 20 mg tablet 20 mg PO DAILY Follow-up/Referrals: Davi,Lyndon Carlos MD [Primary Care Provider, Unknown] Time of Disposition: 15:20
[2025-02-10] MEDS: IPRATROPIUM 0.5 MG/ALBUTEROL SULFATE 2.5 MG (BASE) AMPUL.NEB 3 ML INHALATION (15:07)
== END 2025-02-10 15:26 | disposition home or self-care (01) ==
PROVIDERS: Emergency Provider Nurse Practitioner Family; PCP Internal Medicine Infectious Disease
DX: J44.1 Chronic obstructive pulmonary disease with (acute) exacerbation (principal); Z20.822 Contact with and (suspected) exposure to COVID-19; F17.210 Nicotine dependence, cigarettes, uncomplicated; F12.90 Cannabis use, unspecified, uncomplicated; I25.10 Atherosclerotic heart disease of native coronary artery without angina pectoris; I25.2 Old myocardial infarction; E11.9 Type 2 diabetes mellitus without complications; Z79.4 Long term (current) use of insulin; Z79.84 Long term (current) use of oral hypoglycemic drugs; Z79.85 Long-term (current) use of injectable non-insulin antidiabetic drugs; I10 Essential (primary) hypertension; E78.00 Pure hypercholesterolemia, unspecified; K21.9 Gastro-esophageal reflux disease without esophagitis; Z95.5 Presence of coronary angioplasty implant and graft
CPT/HCPCS: 71046; 87426; 87804; 87880; 94640; 99213; G0463